=== PATIENT | male | born 1990 | race Two or more races ===

== ENCOUNTER 2020-11-17 15:06 | Inpatient (IN) | payer OTHER ==
[~2020-11-17] VITALS: Ht 175.3 cm; Wt 71.7 kg
[2020-11-17] VITALS (7 sets, daily range): BP systolic 110–133; BP diastolic 81–96
--- NOTE | 2020-11-17 15:06 | NUR ---
PT [id number] WITH BIZARRE BEHAVIOR POSS ON METH PER EMS. PT IS AAOX2, NOT IN RESPIRATORY DISTRESS, HOOKED TO STOGIE PACKER, KEPT RESTED AND COMFORTABLE. WILL CONTINUE TO MONITOR.
--- NOTE | 2020-11-17 15:16 | NUR ---
SEEN AND EXAMINED BY .
--- NOTE | 2020-11-17 15:22 | NUR ---
IV LINE ESTABLISHED BLOOD DRAWN AND SENT TO LAB.
[2020-11-17] MEDS ORDERED: LORAZEPAM INJ 2 MG/ML VIAL ONE (15:25)
[2020-11-17] MEDS ORDERED: IV NS 0.9% 1,000 ML BAG IV ONE (15:30)
[2020-11-17] MEDS ORDERED: LORAZEPAM INJ 2 MG/ML VIAL IVP ONE (15:30)
--- NOTE | 2020-11-17 15:33 | NUR ---
FLAME ANNEALING MACHINE OPERATOR AT BEDSIDE FOR XRAY.
[2020-11-17 15:35] LABS: MEAN CORPUSCULAR HGB CONC 32 g/dl (31.0-36.0); MEAN CORPUSCULAR VOLUME 86 fL (80-96); PLATELET COUNT (AUTO) 452 /CMM (150-450); RED BLOOD CELL COUNT(AUTO) 7.26 MIL/uL (4.5-6.0); WHITE BLOOD COUNT (AUTO) 21.7 K/uL (4.3-11.0)
[2020-11-17 15:36] LABS: BASOPHILS % (AUTO) 0.2 % (0.0-2.0); LYMPHOCYTES # (AUTO) 1.4 /CMM (0.8-4.8); LYMPHOCYTES % (AUTO) 6.5 % (20.0-44.0); MONOCYTES # (AUTO) 0.7 /CMM (0.1-1.30); MONOCYTES % (AUTO) 3.3 % (2.0-12.0); NEUTROPHILS # (AUTO) 19.6 /CMM (1.8-8.9)
[2020-11-17 15:41] LABS: HEMATOCRIT 62 % (39-51); HEMOGLOBIN 20.2 g/dL (13.5-17.5)
[2020-11-17 15:53] LABS: ALANINE AMINOTRANSFERASE 61 U/L (12-78); ALBUMIN 5.5 g/dL (3.4-5.0); ALKALINE PHOSPHATASE 132 U/L (46-116); ASPARTATE AMINOTRANSFERASE 70 U/L (15-37); BILIRUBIN,DIRECT 0.2 mg/dL (0.0-0.2); BILIRUBIN,TOTAL 0.7 mg/dL (0.2-1.0); CALCIUM, SERUM 11.2 mg/dL (8.5-10.1); CARBON DIOXIDE 22 mmol/L (21-32); CHLORIDE 109 mmol/L (98-107); GLUCOSE 156 mg/dL (74-106); POTASSIUM 5.4 mmol/L (3.5-5.1); TOTAL PROTEIN, SERUM 10.8 g/dL (6.4-8.2); UREA NITROGEN, BLOOD 69 mg/dL (7-18)
[2020-11-17 15:54] LABS: ACETAMINOPHEN < 2 ug/ml (10-30); ALCOHOL, BLOOD < 3 mg/dL (0-0); SODIUM SERUM 156 mmol/L (136-145)
[2020-11-17 15:55] LABS: CREATININE 10.4 mg/dL (0.6-1.3)
--- NOTE | 2020-11-17 16:04 | NUR ---
PT TO CT VIA KARINA
[2020-11-17] MEDS ORDERED: PIPERACILLIN /TAZOBACTAM 3.375 G in IV D5W 50 ML IV ONE (16:30)
[2020-11-17] MEDS ORDERED: VANCOMYCIN 1 GM in IV D5W 250 ML IV ONE (16:30)
--- NOTE | 2020-11-17 16:42 | NUR ---
CALLED FOR ICU BED
--- NOTE | 2020-11-17 17:10 | NUR ---
REPORT GIVEN TO WILLIAM CEDEÑO FOR MAYANK.
[2020-11-17] MEDS ORDERED: IV NS 0.9% 1,000 ML IV STA (17:12)
[2020-11-17 17:18] LABS: BAND % (MANUAL) 4 % (0.0-5.0); LYMPHOCYTES % (MANUAL) 8 % (16-48); MONOCYTES % (MANUAL) 3 % (0-11.0); NEUTROPHILS % (MANUAL) 85 (42-76)
[2020-11-17] MEDS ORDERED: CEFTRIAXONE 1 G in IV D5W 50 ML IV SCH (17:30)
[2020-11-17] MEDS ORDERED: ACETAMINOPHEN 325 MG TABLET PO PRN (17:30)
[2020-11-17] MEDS ORDERED: Z GUARD REMEDY 2 OZ OINT TP PRN (17:30)
[2020-11-17] MEDS: IV LR 1000 ML 1,000 ML IV PRN (18:24)
--- NOTE | 2020-11-17 18:36 | NUR ---
RN NOTE 1800: Admitted patient from ED, altered. Somnolent but with episodes of withdrawn at times. Placed LIBRARY MANAGER restraint for safety. 2PIVs intact, Vanco ongoing. Ceja cath intact, but no any urine noted. Skin assessment done with another RN, Blane. 97% on room air. Pending Covid PCR, placed on isolation precaution. ST 110's on the monitor. Bolus NS started. LA 6.2. 1835: No any significant changes noted at this time. Will start on LR 200 as ordered.
--- NOTE | 2020-11-17 19:30 | NUR ---
DIRECTOR OF LAND NOTE Received patient in bed-in semi-fowlers position with bilateral wrist restraints. Pt sleepy, opens eyes to name and noise. Ceja cath intact, but no urine noted. pt. currently on room air. Covid PCR pending,pt on isolation precaution. ST on the monitor .IV sites to RAC and ALLY patent intact and flushing well. Call light within reach bed in lowest position, siderails up x 2,will cont. to monitor pt.
--- NOTE | 2020-11-17 20:15 | NUR ---
REGIONAL ENGINEER NOTE PT VOIDED 50ML URINE. SPECIMEN COLLECTED AND LAB MADE AWARE.
[2020-11-17] MEDS: ENOXAPARIN SODIUM 40 MG/0.4 ML DISP.SYRIN SQ SCH (21:32)
[2020-11-17 22:49] LABS: BILIRUBIN,URINE SMALL (NEGATIVE); COLOR,URINE YELLOW (YELLOW); LEUKOCYTE ESTERASE ,URINE NEGATIVE (NEGATIVE); NITRITE, URINE NEGATIVE (NEGATIVE); PH,URINE 5.5 (5.0-8.0); PROTEIN,URINE >=300 mg/dl (NEGATIVE); UGLUCOSE NEGATIVE (NEGATIVE); UROBILINOGEN,URINE 0.2 EU/dL (0.2)
[2020-11-17 22:58] LABS: BACTERIA,URINE None seen /HPF (None Seen); HYALINE CASTS, URINE Few /LPF (None Seen); SQUAMOUS EPITHELIAL CELL,UR Few /HPF (None Seen); WBC,URINE 0-2 /HPF (0-3)
[2020-11-17 22:59] LABS: MUCUS,URINE Few /LPF (None Seen)
[2020-11-17] MEDS: CEFTRIAXONE 1 G in IV D5W 50 ML IV SCH (23:26)
[2020-11-18] VITALS (21 sets, daily range): BP systolic 126–164; BP diastolic 66–97
[2020-11-18] MEDS: IV LR 1000 ML 1,000 ML IV PRN ×4 (06:12→16:58)
[2020-11-18 07:18] LABS: BASOPHILS % (AUTO) 0.2 % (0.0-2.0); HEMATOCRIT 44 % (39-51); HEMOGLOBIN 14.5 g/dL (13.5-17.5); LYMPHOCYTES # (AUTO) 1.5 /CMM (0.8-4.8); LYMPHOCYTES % (AUTO) 9.3 % (20.0-44.0); MEAN CORPUSCULAR HGB CONC 33 g/dl (31.0-36.0); MEAN CORPUSCULAR VOLUME 86 fL (80-96); MONOCYTES # (AUTO) 1.1 /CMM (0.1-1.30); MONOCYTES % (AUTO) 6.7 % (2.0-12.0); NEUTROPHILS # (AUTO) 13.6 /CMM (1.8-8.9); NEUTROPHILS % (AUTO) 83.8 % (43.0-81.0); PLATELET COUNT (AUTO) 226 /CMM (150-450); RED BLOOD CELL COUNT(AUTO) 5.07 MIL/uL (4.5-6.0); WHITE BLOOD COUNT (AUTO) 16.2 K/uL (4.3-11.0)
--- NOTE | 2020-11-18 07:20 | NUR ---
RN NOTE ENDORSED TO AM RN PT CURRENT STABLE A/O X 3, OFF OF RESTRAINTS AND ORDER FOR MIDLINE PLACED. PT VOIDING, AWAKE AND COOPERATIVE. SR ON THE MONITOR.
[2020-11-18 07:32] LABS: ALBUMIN 3.2 g/dL (3.4-5.0); BILIRUBIN,TOTAL 0.5 mg/dL (0.2-1.0); CALCIUM, SERUM 8.2 mg/dL (8.5-10.1); CREATININE 7.2 mg/dL (0.6-1.3); MAGNESIUM 2.2 mg/dL (1.8-2.4); PHOSPHORUS 5.2 mg/dL (2.5-4.9); POTASSIUM 4.4 mmol/L (3.5-5.1); TOTAL PROTEIN, SERUM 6.4 g/dL (6.4-8.2)
[2020-11-18 07:41] LABS: THYROID STIMULATING HORMONE 1.514 uIU/mL (0.358-3.74)
--- NOTE | 2020-11-18 08:00 | NUR ---
RN NOTES RECEIVED PATIENT RESTING IN THE BED A/O X3, NO ACUTE RESPIRATORY DISTRESS, VSS, REFUSED PAIN. INFUSING LR @ 200 ML/HR ON LEFT UA INTACT. PATIENT TURN AND REPOSTION SELF. CALL LIGHT WITHIN TO REACH, WILL MONITORING.
--- NOTE | 2020-11-18 08:42 | NUR ---
RN NOTES PATIENT GETTING ECHO AT THIS TIME.
[2020-11-18] MEDS: ONDANSETRON HCL/PF 4 MG/2 ML VIAL IVP PRN ×2 (11:57→22:29)
--- NOTE | 2020-11-18 11:57 | NUR ---
rn notes administered Zofran 4 mg/ml iv push for nausea, and hiccups.
--- NOTE | 2020-11-18 13:26 | NUR ---
rn notes medication were administered for nausea effective, refused lunch, bp- 142/92. patient resting calmly. Midline inserted on right UA intact. seen hospitalist, and filleter , will follow up urine output.
--- NOTE | 2020-11-18 15:23 | NUR ---
RN NOTES ADMINISTERED REGLAN 10 MG/ML IV PUSH FOR HICCUPS, AND NAUSEA.
[2020-11-18] MEDS ORDERED: METOCLOPRAMIDE HCL 10 MG/2 ML VIAL IV PRN (15:30)
--- NOTE | 2020-11-18 17:17 | NUR ---
rn notes get order from client onboarding analyst transfer patient Tele unit room 107.
--- NOTE | 2020-11-18 18:00 | NUR ---
rn notes Transferred patient tele unit room 107. Report given WILLIAM THORNTON. Patient room air, no acute respiratory distress, VSS no fibril, refused pain. Medication were administered for hiccups effective. Infusing LR 200 ml/hr on right midline intact. Ceja output was 1900 ml. Endorsed RN follow plan of care.
--- NOTE | 2020-11-18 18:58 | NUR ---
PATIENT RECEIVED FROM ICU. VITAL SIGNS TAKEN. CANTU DRAINING YELLOW URINE. RIGHT UPPER ARM MIDLINE RUNNING LR AT 200 ML/HR. SAFETY PRECAUTIONS IMPLEMENTED, SIDE RAILS UP X2, CALL LIGHT WITHIN REACH. WILL ENDORSE CARE TO UPCOMING SHIFT.
--- NOTE | 2020-11-18 19:25 | NUR ---
RN NOTE REC'D PT IN BED. RESTING. A/O X4, PT IS ON ROOM AIR TOLERATING WELL NO SOB OR RESP DISTRESS NOTED. PT IS ON TELE MONITORING WITH NSR HR OF 81 AT THIS TIME. PT HAS BAUDILIO MIDLINE FLUSHED ASEPTICALLY. CANTU CATH PRESENT DRAINING VIA GRAVITY. PT DENIES PAIN AND NAUSEA AT THIS TIME. SAFETY MEASURES IN PLACE. HOB ELEVATED TOLERATED. SIDE RAILS UP X2 BED LOCKED IN LOWEST POSITION WITH BED ALARM ON. CALL LIGHT WITHIN REACH WILL CONT TO MONITOR.
--- NOTE | 2020-11-18 19:30 | NUR ---
RN NOTE IVF RUNNING ORDERED. LR AT 200ML/HR. NO S/S OF INFILTRATION NOTED. PT COOPERATIVE WITH CARE, WILL CONT TO MONITOR
[2020-11-18] MEDS: ENOXAPARIN SODIUM 40 MG/0.4 ML DISP.SYRIN SQ SCH (21:13)
[2020-11-18] MEDS: CEFTRIAXONE 1 G in IV D5W 50 ML IV SCH (22:05)
--- NOTE | 2020-11-18 22:30 | NUR ---
RN NOTE PT C/O OF NAUSEA AT THIS TIME, HOB ELEVATED. ZOFRAN PRN MEDICATION GIVEN ORDERED
[2020-11-18 23:20] LABS: BILIRUBIN,URINE NEGATIVE (NEGATIVE); COLOR,URINE YELLOW (YELLOW); LEUKOCYTE ESTERASE ,URINE NEGATIVE (NEGATIVE); NITRITE, URINE NEGATIVE (NEGATIVE); PH,URINE 5.5 (5.0-8.0); PROTEIN,URINE TRACE mg/dl (NEGATIVE); UGLUCOSE 250 MG/DL mg/dL (NEGATIVE); UROBILINOGEN,URINE 0.2 EU/dL (0.2)
[2020-11-18 23:41] LABS: CREATININE, URINE 53.9 MG/DL (30.0-125.0); URINE TOTAL PROTEIN 30.2 mg/dL (0-11.9)
[2020-11-18 23:51] LABS: BACTERIA,URINE None seen /HPF (None Seen); SQUAMOUS EPITHELIAL CELL,UR Few /HPF (None Seen); WBC,URINE 0-2 /HPF (0-3)
[2020-11-18 23:52] LABS: COARSE GRANULAR CASTS,URINE Few /LPF (None Seen); URIC ACID CRYSTALS,URINE Many /HPF (None Seen)
[2020-11-18 23:53] LABS: HYALINE CASTS, URINE Few /LPF (None Seen)
[2020-11-19] VITALS: BP 127/80
[2020-11-19] MEDS: IV LR 1000 ML 1,000 ML IV PRN (00:50)
[2020-11-19 01:28] LABS: EOSINOPHIL,URINE None Seen
[2020-11-19 04:00] VITALS: BP 138/84
[2020-11-19 05:52] LABS: BASOPHILS % (AUTO) 0.2 % (0.0-2.0); EOSINOPHILS % (AUTO) 0.4 % (0.0-6.0); HEMATOCRIT 38 % (39-51); LYMPHOCYTES # (AUTO) 1.6 /CMM (0.8-4.8); LYMPHOCYTES % (AUTO) 19.6 % (20.0-44.0); MEAN CORPUSCULAR HGB CONC 35 g/dl (31.0-36.0); MEAN CORPUSCULAR VOLUME 84 fL (80-96); MONOCYTES # (AUTO) 0.8 /CMM (0.1-1.30); NEUTROPHILS # (AUTO) 5.7 /CMM (1.8-8.9); NEUTROPHILS % (AUTO) 69.8 % (43.0-81.0); PLATELET COUNT (AUTO) 188 /CMM (150-450); RED BLOOD CELL COUNT(AUTO) 4.49 MIL/uL (4.5-6.0); WHITE BLOOD COUNT (AUTO) 8.1 K/uL (4.3-11.0)
[2020-11-19 06:18] LABS: ALBUMIN 2.6 g/dL (3.4-5.0); BILIRUBIN,TOTAL 0.5 mg/dL (0.2-1.0); CALCIUM, SERUM 7.9 mg/dL (8.5-10.1); CREATININE 2.8 mg/dL (0.6-1.3); MAGNESIUM 1.5 mg/dL (1.8-2.4); PHOSPHORUS 3.3 mg/dL (2.5-4.9); POTASSIUM 3.7 mmol/L (3.5-5.1); TOTAL PROTEIN, SERUM 5.5 g/dL (6.4-8.2)
--- NOTE | 2020-11-19 07:30 | NUR ---
RN CLOSING NOTE NO CHANGE IN PT CONDITION. STABLE THROUGHOUT NIGHT. STILL ON IVF ORDERED NO INFILTRATION NOTED. SAFETY MEASURES IN PLACE HOB ELEVATED. SIDE RAILS UP X2M BED LOCKED IN LOWEST POSITION WITH BED ALARM ON. CALL LIGHT WITHIN REACH. ENDORSED TO AM NURSING FOR CONT OF CARE.
--- NOTE | 2020-11-19 07:35 | NUR ---
RN OPENING NOTE PATIENT IS CURRENTLY IN BED WITH HOB AT SEMI FOWLERS POSITION. PATIENT IS ON ROOM AIR WITH NO SIGNS OF LABORED BREATHING. PATIENT IS AOX4. CANTU CATHETER IS IN PLACE. BAUDILIO MIDLINE IS PATENT AND INTACT. BED IS LOCKED IN THE LOWEST POSITION, 3 GUARD RAILS RAISED, CALL CORONEL WITHIN REACH, AND ALL HOSPITAL SAFETY PRECAUTIONS ARE BEING FOLLOWED. WILL CONTINUE TO MONITOR THROUGHOUT SHIFT.
--- NOTE | 2020-11-19 07:43 | NUR ---
RN NOTE NOTIFIED DR. ROY OF TROPONIN 0.688 AND CKMB 42.2
[2020-11-19 08:00] VITALS: BP 140/85
[2020-11-19] MEDS: IV D5/0.45 NACL 1,000 ML IV PRN (10:55)
[2020-11-19] MEDS: Magnesium 1GM/D5W 100ML PREMIX 100 ML IV SCH ×2 (10:56→12:01)
[2020-11-19] MEDS: VANCOMYCIN 1 GM in IV D5W 250ml IV SCH (11:28)
[2020-11-19 12:00] VITALS: BP 146/88
--- NOTE | 2020-11-19 12:20 | NUR ---
"Social Service Consult: social human services assistants consult requested for homelessness and substance abuse. Patient is a 30-year-old, male. SW met with the patient at his hospital bed in the telemetry unit. Patient was alert and oriented x4. Patient was resting. Per patients chart, patient was brought in by paramedics on 11/17/2020 and presented with bizarre and inappropriate behavior. Per patients toxicology report, patient is positive for amphetamine. Patient stated that he is currently homeless and has been homeless for the last 3 months. SW assessed patients history of mental illness and patient stated that he has no history of mental illness. Patient denies any current suicidal or homicidal ideation. SW asked patient if he currently has a source of income and patient stated he receives food stamps and has been applying for General Relief. Patient stated he is independent with his ADLs. Patient stated he is ambulatory and usually takes the bus for transportation. SW asked patient if he has any social support and patient stated that he currently has inadequate support but receives support from his father occasionally. SW asked patient about his history of substance use and patient stated that he uses methamphetamine. SW asked the patient about his frequency of use and patient stated, I dont know, just sometimes. Patient stated that he has been using the substance for the last 10 years. SW discussed homeless and substance use resources with the patient. Patient showed interest in these resources and stated that he was unaware of the local shelters that were available. Patient stated that he is motivated to utilize the substance use resources provided and expressed concern and awareness of how his substance use has negatively impacted his health. SW offered these resources to the patient. Patient signed the homeless waiver and SW filed the waiver in the patients chart. SW discussed discharge plan with the patient and patient stated that he will return to the streets but will investigate the half-way resources provided. Patient will take the bus for transportation. PLAN: Upon discharge, patient stated that he will return to the streets. No further SS interventions needed at this time however, SW will follow-up if needed. Year-round shelters: [facility] [address] [place], [place] [phone] ; [facility] [place] [facility] [address] [place] [address]; [id number]. [facility] [address] SPA 4 | [facility] Provider: First to Serve Address: [address], [address] # of Beds: 48 Population Served: [facility] Provider: First to Serve Address: [address] [facility], [address] # of Beds: 73 Population Served: [facility] 6 | [facility] Provider: Home at Last Address: [address] [facility], [address] # of Beds: 63 Population Served: [facility] SPA 3 | [facility] Provider: [facility] [place] Address: [address] [facility], [address] # of Beds: 75 Population Served: [facility] 8 | [facility] Provider: [facility] [place] Address: [address] [place] [address] # of Beds: 80 Population Served: [facility] 1 | [facility] Provider: [facility] [place] Address: [address] [place] [address], [address] # of Beds: 85 Population Served: [facility] 2 | [facility] Provider: [facility] Address: Confidential (please call for location) # of Beds: 52 Population Served: [facility] 4 | [facility] Provider: [facility] Address: [address] [facility] [facility], [address] # of Beds: 49 Population Served: [facility] Provider: First To Serve Address: [address] [facility], [address] # of Beds: 27 Population Served: Julien Hygiene: [facility]: [address] [place] ; [facility] [address] [facility] [address] [facility] ; [facility] [address] . Food Resources: [place] [facility] at [facility]- [address] [place]; Meet Each Need with [facility]ign[facility] ([facility]) [address] [place]; [facility] [address] [facility]; [facility] [address] [place]. Mental Health resources provided: [facility] [address] [place], [place] [address] ; [facility] [address] [facility] [address], [place], [place] [phone] ; [facility] [address] [facility] [place], [place] [phone] ; [facility] [address] [place], [place] [phone] Healthcare Clinics: [facility] [address] [facility], [address] [place]. [place] ; [facility] [address] [facility] [address] [place] [address]; [facility] [address] [facility] [place] [address] [phone] Counseling--Outpatient [facility] [address] [facility], [address] [place], [place] [address] (Specializes in in-depth psychotherapy for emotional distress: anxiety, depression, interpersonal conflicts, life transitions, childhood abuse) PSYCHIATRIC OUTPATIENT SERVICES [facility] Partial Hospitalization and Intensive Outpatient Program (Managed Care and Foster Only) [address] [facility] [phone] [facility] Partial Hospitalization and Outpatient Program [address] [place], [place] [phone] [facility] Partial Hospitalization and Outpatient Program [address] [place], [place] [phone] [facility] Mental [facility] [facility] [address] [place] [address] [facility] Partial Hospitalization and Outpatient Program [address] [facility] [place] [phone] Substance use resources provided included: [facility] Substance Abuse Self-Helpline (SAS) ; [facility] [address] [facility]. [place] [phone] ; [facility] [address] [facility] [address] ; [facility] [address] [facility] [address] ; [facility] [address] [facility] [phone] ; [facility] [address] [facility] [phone] ; [facility]; [facility] [place]; [place] [facility] [place]; Alcoholics Anonymous -[facility]"
[2020-11-19 16:00] VITALS: BP 136/84
[2020-11-19] MEDS ORDERED: VANCOMYCIN 1 GM in IV D5W 250ml IV SCH (18:00)
--- NOTE | 2020-11-19 18:44 | NUR ---
RN CLOSING NOTE PATIENT IS CURRENTLY IN BED WITH HOB AT SEMI FOWLERS POSITION. PATIENT IS ON ROOM AIR WITH NO SIGNS OF LABORED BREATHING. PATIENT IS AOX4. CANTU CATHETER IS IN PLACE. BADUILIO MIDLINE IS PATENT AND INTACT. BED IS LOCKED IN THE LOWEST POSITION, 3 GUARD RAILS RAISED, CALL CORONEL WITHIN REACH, AND ALL HOSPITAL SAFETY PRECAUTIONS ARE BEING FOLLOWED. ALL DUE MEDS GIVEN AND PATIENT REMAINED STABLE THROUGHOUT SHIFT. WILL ENDORSE TO DRAFTING INSTRUCTOR RN FOR MAYANK.
[2020-11-19 20:00] VITALS: BP 130/69
--- NOTE | 2020-11-19 20:17 | NUR ---
RN NOTE PATIENT ALERT AND ORIENTED X4. ON ROOM AIR, O2 SAT 99%. NO SOB OR ANY RESPIRATORY DISTRESS. WITH CANTU CATH DRAINING YELLOW URINE TO GRAVITY. IV ACCESS BAUDILIO MIDLINE RUNNING D5 1/2 NS @ 50ML/HR. DENIES ANY PAIN OR DISCOMFORT. ALL NEEDS ATTENDED PROMPTLY. BED LOCKED AND IN LOWEST POSITION. CALL LIGHT WITHIN REACH. WILL CONTINUE TO MONITOR.
[2020-11-19] MEDS: ENOXAPARIN SODIUM 40 MG/0.4 ML DISP.SYRIN SQ SCH (21:00)
[2020-11-19] MEDS: CEFTRIAXONE 1 G in IV D5W 50 ML IV SCH (22:00)
--- NOTE | 2020-11-19 23:06 | NUR ---
PATIENT COMPLAINED OF CHEST TIGHTNESS, STATED "FEELS LIKE SOMEONE IS SITTING ON MY CHEST." 01/26 PAIN. BP 139/83, HR 63, O2 SAT 98%. REED CABALLERO MADE AWARE WITH NEW ORDERS NOTED AND CARRIED OUT.
[2020-11-19] MEDS ORDERED: NITROGLYCERIN 0.4 MG/TAB BOTTLE SL PRN (23:30)
--- NOTE | 2020-11-19 23:30 | NUR ---
CHEST TIGHTNESS RELIEVED WITH 1 DOSE OF NITRO 0.4 MG. WILL CONTINUE TO MONITOR.
[2020-11-20] VITALS: BP 139/83
[2020-11-20 04:00] VITALS: BP 124/72
[2020-11-20] MEDS: VANCOMYCIN 1 GM in IV D5W 250ml IV SCH (04:37)
[2020-11-20] MEDS: IV D5/0.45 NACL 1,000 ML IV PRN (04:55)
[2020-11-20 05:07] LABS: PTH, INTACT 131 pg/mL (15-65)
[2020-11-20 05:55] LABS: BASOPHILS % (AUTO) 0.3 % (0.0-2.0); EOSINOPHILS % (AUTO) 3.2 % (0.0-6.0); HEMATOCRIT 39 % (39-51); HEMOGLOBIN 13.2 g/dL (13.5-17.5); LYMPHOCYTES # (AUTO) 1.5 /CMM (0.8-4.8); LYMPHOCYTES % (AUTO) 29.4 % (20.0-44.0); MEAN CORPUSCULAR HGB CONC 34 g/dl (31.0-36.0); MEAN CORPUSCULAR VOLUME 84 fL (80-96); MONOCYTES # (AUTO) 0.4 /CMM (0.1-1.30); MONOCYTES % (AUTO) 8.3 % (2.0-12.0); NEUTROPHILS % (AUTO) 58.8 % (43.0-81.0); PLATELET COUNT (AUTO) 172 /CMM (150-450); RED BLOOD CELL COUNT(AUTO) 4.64 MIL/uL (4.5-6.0); WHITE BLOOD COUNT (AUTO) 5.1 K/uL (4.3-11.0)
[2020-11-20 06:13] LABS: CALCIUM, SERUM 8.3 mg/dL (8.5-10.1); CREATININE 1.6 mg/dL (0.6-1.3); MAGNESIUM 1.8 mg/dL (1.8-2.4); PHOSPHORUS 3.2 mg/dL (2.5-4.9); POTASSIUM 3.4 mmol/L (3.5-5.1)
--- NOTE | 2020-11-20 07:00 | NUR ---
RN NOTE PATIENT ALERT AND ORIENTED X4. ON ROOM AIR, O2 SAT 99%. RESPIRATIONS EVEN AND UNLABORED. WITH CANTU CATH DRAINING YELLOW URINE TO GRAVITY OUTPUT OF 2300. IV ACCESS BAUDILIO MIDLINE RUNNING D5 1/2 NS @ 50ML/HR. DENIES ANY PAIN OR DISCOMFORT. ALL NEEDS ATTENDED PROMPTLY. BED LOCKED AND IN LOWEST POSITION. CALL LIGHT WITHIN REACH. WILL ENDORSE TO AM SHIFT.
[2020-11-20 08:00] VITALS: BP 124/85
[2020-11-20] MEDS ORDERED: POTASSIUM CHLORIDE 20 MEQ TAB.PRT.SR PO ONE (10:00)
[2020-11-20 11:07] LABS: *SPE A/G RATIO 1.1 (0.7-1.7); *SPE ALBUMIN 2.6 g/dL (2.9-4.4); *SPE ALPHA-1-GLOBULIN 0.2 g/dL (0.0-0.4); *SPE ALPHA-2-GLOBULIN 0.7 g/dL (0.4-1.0); *SPE BETA GLOBULIN 0.8 g/dL (0.7-1.3); *SPE GLOBULIN, TOTAL 2.4 g/dL (2.2-3.9); *SPE M-SPIKE Not Observed g/dL (Not Observed); *SPEGAMMA GLOBULIN 0.7 g/dL (0.4-1.8)
[2020-11-20 16:00] VITALS: BP 111/64
[2020-11-20] MEDS ORDERED: VANCOMYCIN 1 GM in IV D5W 250ml IV SCH (17:00)
[2020-11-20 18:00] VITALS: BP 111/64
--- NOTE | 2020-11-20 19:12 | NUR ---
INSPECTOR WIRE PRODUCTS MS CLOSING NOTE: patient is alert and orientated x4. Patient has been complaint with all scheduled medications and has not complained of any pain. Potassium is 3.4 however patient is receiving Potassium Tab 20 Meq. Patient has ate 100% of all meals and snacks in between, patient is voiding atleast 30ml/ hr output via valera catheter end of shift total urine output 700 ml. Bed has been left in lowest position, three side rails up and call light within reach.
--- NOTE | 2020-11-20 19:30 | NUR ---
RN NOTE RECEIVED PT IN BED, ALERT AND ORIENTED X 4. TOLERATING ROOM AIR. DENIES ANY SOB OR PAIN. NO DISTRESS NOTED. MIDLINE ON BAUDILIO PATENT AND INTACT, D5 1/2 NS RUNNING AT 50 ML/HR. CANTU CATH IN PLACE, DRAINING CLEAR YELLOW URINE OUTPUT. WILL CONTINUE TO MONITOR. ALL SAFETY MEASURES IMPLEMENTED PER PROTOCOL. CALL LIGHT WITHIN REACH. BED LOCKED IN LOWEST POSITION.
[2020-11-20 20:00] VITALS: BP 127/81
[2020-11-20] MEDS: ENOXAPARIN SODIUM 40 MG/0.4 ML DISP.SYRIN SQ SCH (22:04)
[2020-11-20] MEDS: CEFTRIAXONE 1 G in IV D5W 50 ML IV SCH (22:08)
[2020-11-21] MEDS: IV D5/0.45 NACL 1,000 ML IV PRN (01:51)
[2020-11-21 04:00] VITALS: BP 127/79
[2020-11-21 06:23] LABS: BASOPHILS % (AUTO) 0.3 % (0.0-2.0); EOSINOPHILS % (AUTO) 6.3 % (0.0-6.0); HEMATOCRIT 40 % (39-51); HEMOGLOBIN 13.6 g/dL (13.5-17.5); LYMPHOCYTES # (AUTO) 1.6 /CMM (0.8-4.8); LYMPHOCYTES % (AUTO) 30.5 % (20.0-44.0); MEAN CORPUSCULAR HGB CONC 34 g/dl (31.0-36.0); MEAN CORPUSCULAR VOLUME 84 fL (80-96); MONOCYTES # (AUTO) 0.5 /CMM (0.1-1.30); MONOCYTES % (AUTO) 9.3 % (2.0-12.0); NEUTROPHILS # (AUTO) 2.8 /CMM (1.8-8.9); NEUTROPHILS % (AUTO) 53.6 % (43.0-81.0); PLATELET COUNT (AUTO) 185 /CMM (150-450); WHITE BLOOD COUNT (AUTO) 5.3 K/uL (4.3-11.0)
--- NOTE | 2020-11-21 06:40 | NUR ---
RN CLOSING NOTES PT SLEEPING AROUSES EASILY, NO SIGNS OF DISTRESS NOTED. DENIES SOB OR PAIN. NO CHANGE IN LOC NOTED. CONTINUE ON IVF D5 1/2 NS, NO SIGNS OF INFILTRATION NOTED. MIDLINE ON BAUDILIO AND ALLY IV PATENT AND INTACT. PT ABLE TO MAKE NEEDS KNOWN WITH BATHROOM PRIVILEGES. CANTU IN PLACE DRAINING WELL. ALL SAFETY MEASURES MAINTAINED. WILL ENDORSE TO NEXT SHIFT NURSE FOR MAYANK.
[2020-11-21 07:29] LABS: CALCIUM, SERUM 8.7 mg/dL (8.5-10.1); CREATININE 1.2 mg/dL (0.6-1.3); POTASSIUM 3.9 mmol/L (3.5-5.1)
--- NOTE | 2020-11-21 07:33 | NUR ---
RECEIVED PATIENT IN BED. NO ACUTE DISTRESS NOTED. PATIENT ALERT & ORIENTED X4. PATIENT ON ROOM AIR, SATURATING WELL.. PATIENT FC INTACT, PATENT. PATIENT BAUDILIO MIDLINE INTACT, PATENT. PATIENT SAFETY MEASURES MAINTAINED. CALL LIGHT WITHIN REACH. WILL CONTINUE TO MONITOR.
[2020-11-21 07:54] LABS: MAGNESIUM 1.7 mg/dL (1.8-2.4); PHOSPHORUS 3.7 mg/dL (2.5-4.9)
[2020-11-21] MEDS: Magnesium 1GM/D5W 100ML PREMIX 100 ML IV SCH ×2 (08:36→09:42)
--- NOTE | 2020-11-21 14:27 | NUR ---
PATIENT DISCHARGED IN STABLE CONDITION. PATIENT IV REMOVED, ID BAND REMOVED, BELONGINGS GIVEN. PATIENT DISCHARGE INSTRUCTIONS GIVEN. CLOTHES GIVEN TO PATIENT.
== END 2020-11-21 14:27 | disposition home or self-care (01) | DRG 812 ==
LOC: ER 15:08 → ICU 17:01 → TELE1 11-18 17:31 → MEDSG1 11-20 08:17
PROVIDERS: ADMIT Nurse Practitioner Acute Care; ATTEND Family Medicine
PROC: 05H933Z Insertion of Infusion Device into Right Brachial Vein, Percutaneous Approach (ICD-10-PCS; principal; 2020-11-18)
DX: T43.621A Poisoning by amphetamines, accidental (unintentional), initial encounter (principal); I21.A1 Myocardial infarction type 2; J98.59 Other diseases of mediastinum, not elsewhere classified; N17.0 Acute kidney failure with tubular necrosis; K72.00 Acute and subacute hepatic failure without coma; G92 Toxic encephalopathy; E87.0 Hyperosmolality and hypernatremia; J93.83 Other pneumothorax; E86.0 Dehydration; E86.1 Hypovolemia; E83.42 Hypomagnesemia; Y92.89 Other specified places as the place of occurrence of the external cause; D72.829 Elevated white blood cell count, unspecified; D47.3 Essential (hemorrhagic) thrombocythemia; E87.5 Hyperkalemia; F17.200 Nicotine dependence, unspecified, uncomplicated; R74.01 Elevation of levels of liver transaminase levels; J93.9 Pneumothorax, unspecified; Z20.822 Contact with and (suspected) exposure to COVID-19; N20.0 Calculus of kidney
CPT/HCPCS: 36415; 70450-TC; 71045-TC; 71250-TC; 80048-TC; 80053-TC; 80061-TC; 80076-TC; 80202-TC; 81001; 82550-TC; 82553; 82570-TC; 83540-TC; 83605-TC; 83735-TC; 83970; 84100-TC; 84155; 84155-TC; 84165; 84300-TC; 84443-TC; 84484-TC; 85025-TC; 85730-TC; 87040-TC; 87081-TC; 93307-TC; G0378; G0480; J0696; J1650; J2060; J2405; J2543; J2765; J3370; J3475; J3490; J7030; J7050; J7060; J7120; U0003

== ENCOUNTER → 2021-11-13 | Emergency (ER) | payer OTHER ==
[~2021-11-13] VITALS: Ht 175.3 cm; Wt 72.6 kg
[~2021-11-13] MED LIST: IBUPROFEN 400 MG TABLET ONE; IBUPROFEN 400 MG TABLET PO ONE
--- NOTE | 2021-11-13 02:20 | NUR ---
a/ox3. c/o right hand pain ans swelling, s/p punch door. to bed 2.
--- NOTE | 2021-11-13 02:27 | NUR ---
xray at bedside
[2021-11-13 03:44] VITALS: BP 117/80
== END | disposition home or self-care (01) ==
LOC: ER 01:55
DX: S60.011A Contusion of right thumb without damage to nail, initial encounter (principal); S60.021A Contusion of right index finger without damage to nail, initial encounter; Z59.00 Homelessness unspecified; X50.9XXA Other and unspecified overexertion or strenuous movements or postures, initial encounter; Y93.89 Activity, other specified; Y92.89 Other specified places as the place of occurrence of the external cause; Y99.8 Other external cause status
CPT/HCPCS: 73130-TC